=== PATIENT | female | born 1975 | race Caucasian/White ===

== ENCOUNTER 2017-07-16 11:50 | Emergency (ER) | payer OTHER ==
[2017-07-16] MEDS: PERCOCET 5MG/325MG TAB PO (12:50)
[2017-07-16] MEDS: ONDANSETRON 4 MG ORAL DISINTEGRATING TAB (S0181) PO (12:51)
== END 2017-07-16 15:14 | disposition home or self-care (01) ==
LOC: M ED 11:50
DX: S16.1XXA Strain of muscle, fascia and tendon at neck level, initial encounter (principal); S23.3XXA Sprain of ligaments of thoracic spine, initial encounter; V49.49XA Driver injured in collision with other motor vehicles in traffic accident, initial encounter; Y92.410 Unspecified street and highway as the place of occurrence of the external cause
CPT/HCPCS: 72072

== ENCOUNTER → 2022-10-05 | Outpatient (CLI) | payer OTHER ==
[~2022-10-05] MED LIST: BACI500O59 EX; CYCL-707; IBUP80TA PO; NAPR-885; PERC5TAB12 PO
== END ==
LOC: M RAD 10:22
PROVIDERS: ATTEND Nurse Practitioner Family
DX: M54.16 Radiculopathy, lumbar region (principal)

== ENCOUNTER → 2024-06-11 | Outpatient (CLI) | payer OTHER | LOC: M CARPUL 09:53 | PROVIDERS: ATTEND Internal Medicine | DX: R01.1 Cardiac murmur, unspecified (principal); I08.1 Rheumatic disorders of both mitral and tricuspid valves ==